=== PATIENT | male | born 1985 | race Asian ===

== ENCOUNTER 2024-05-18 02:30 | Emergency (ER) | payer OTHER, SELFPAY ==
[2024-05-18 02:33] VITALS: BP 133/88; PULSE 69; RESP 16; TEMP 36.6; O2SAT 98
--- NOTE | 2024-05-18 02:48 | ED.GENADUL_ITS ---
Discharge Plan Disposition Patient Disposition: Home Condition: Good Discharge Details Clinical Impression: Acute torticollis ED Provider: Caitlyn Johnson Home Meds and New Rx's Prescriptions: New diazepam 5 mg tablet 5 mg PO TID PRNQty: 10 0RF diazepam 5 mg tablet 5 mg PO TID PRNQty: 10 0RF Discharge Instructions Instructions: Torticollis (DC) Additional Instructions: Tylenol and ibuprofen over the counter; follow the directions on the bottle. Neck brace at night when sleeping ONLY. Diazepam up to every 8 hours as needed for pain/spasm. Do not drive while you are taking this medication. Call your primary care doctor today to schedule an appointment for within 72 hours to followup on your visit here. Return to the emergency department for new or worsening symptoms including new/different/worse pain, numbness or weakness, or if you have any other concerns. Stand Alone Forms: Work Release HPI General Mode of arrival: ambulatory . Date/Time Provider Initiated Documentation: 05/18/24 02:31 . Limitations to Documentation: no limitations . Information obtained by: patient . HPI Narrative: 38yo previously healthy male presenting with acute left sided neck pain. Symptoms started two days ago, woke from sleep and thinks he 'slept wrong'; left side neck pain worse with any movement. Currently unable to turn his head. Pain is dull, severe, and non-radiating. No recent trauma or injury. No fevers, headache, nausea, vomiting, numbness, tingling, or weakness. Otherwise in his usual state of health. Related Data Home Medications ?Medication ?Instructions ?Recorded ?Confirmed diazepam 5 mg tablet 5 mg PO TID PRN #10 tabs 05/18/24 diazepam 5 mg tablet 5 mg PO TID PRN #10 tabs 05/18/24 Previous Rx's ?Medication ?Instructions ?Recorded diazepam 5 mg tablet 5 mg PO TID PRN #10 tabs 05/18/24 diazepam 5 mg tablet 5 mg PO TID PRN #10 tabs 05/18/24 Allergies Allergy/AdvReac Type Severity Reaction Status Date / Time No Known Allergies Allergy Verified 05/18/24 02:41 General Stated Complaint: Nk/Back Pain THOR: 4 Review of Systems Narrative: see HPI Exam Narrative Exam Narrative: General: Alert, well appearing, well nourished, in no acute distress. Head: Normocephalic, atraumatic Neck: Trachea midline, ?Neck supple. No midline c-spine tenderness. TTP and palpable spasm of left trapezius. ENT: ?MMM.? No oropharygeal lesions or exudate. Cardiac: ?No cyanosis. Resp: No respiratory distress. Speaking in full sentences. Abd: ?Non-distended Extremities: ?No deformities.? No peripheral edema. Neurologic: GCS 15. ? Moves all extremities freely against gravity. Sensation and strength intact throughout LUE. Course Vital Signs Vital signs: Vital Signs Temperature 36.6 C 05/18/24 02:33 Pulse 69 05/18/24 02:33 Respiratory Rate 16 05/18/24 02:33 Blood Pressure 133/88 05/18/24 02:33 Pulse Oximetry 98 05/18/24 02:33 Temperature 36.6 C 05/18/24 02:33 Temperature Source Temporal Artery Scan 05/18/24 02:33 Pulse 69 05/18/24 02:33 Respiratory Rate 16 05/18/24 02:33 Respiratory Effort Normal 05/18/24 02:37 Blood Pressure 133/88 05/18/24 02:33 Pulse Oximetry 98 05/18/24 02:33 Oxygen Delivery Method Room Air 05/18/24 02:33 Oxygen Flow Rate 0 05/18/24 02:33 Pain Level 2 05/18/24 02:33 Medical Decision Making 38yo previously healthy male presenting with acute left sided neck pain. Symptoms started two days ago, woke from sleep and thinks he 'slept wrong'; left side neck pain worse with any movement. No trauma. Systemically well. Vital signs reassuring on arrival. Palpable left trapezius spasm on exam, TTP. Neurovascular intact. Not septic, not concerning for meningitis; no indication for labs or CT imaging or LP. Will treat symptoms with tylenol, toradol, lidocaine patch, cyclobenzaprine and reassess. On reassessment patient reports some improvement, able to slightly rotate neck though minimally however pain still significant. Unable to lie down without significant pain. Will try diazepem, soft collar to aid in neck positioning while lieing down only. Pt subsequently able to lie down, sleep briefly. Reports pain improved. Discharged home with short course of diazepam. Discharged instructions and return precautions were reviewed with patient who verbalized understanding. All questions were answered and he is in full agreement with the plan. Quality:SDOH Health Related Social Needs: No Data to Display PFSH All Active Problems (Updated 05/18/24 @ 05:00 by Caitlyn Johnson MD) Acute torticollis (Acute) Social History Smoking risk assessment performed?: No
[2024-05-18] MEDS: Ketorolac 15 MG/ML VIAL IM (03:05)
[2024-05-18] MEDS: Cyclobenzaprine 10 MG TAB PO (03:05)
[2024-05-18] MEDS: Lidocaine 5% Patch 1 PATCH TP (03:05)
[2024-05-18] MEDS: Acetaminophen 500 MG TAB 1000 MG PO (03:05)
[2024-05-18] MEDS: diazePAM 5 MG TAB (04:18)
[2024-05-18 05:11] VITALS: BP 128/72; PULSE 70; RESP 16; TEMP 37; O2SAT 99
== END 2024-05-18 05:13 | disposition home or self-care (01) ==
PROVIDERS: Emergency Provider Student in an Organized Health Care Education/Training Program
DX: M43.6 Torticollis (principal)
CPT/HCPCS: 96372; 99283; J1885